=== PATIENT | female | born 1995 | race Caucasian/White ===

== ENCOUNTER 2018-04-10 06:34 | Day surgery (SDC) | payer SELFPAY ==
[~2018-04-10 06:34] MED LIST: Lactated Ringers 1,000 ML IV SCH; cefOXitin 1 GM in Premix Bag 1 BAG IV SCH
--- NOTE | 2018-04-10 06:54 | PCM.PREANE ---
Preanesthetic Assessment - Anesthesia/Transfusion/Family Hx Anesthesia History: Prior Anesthesia Without Reaction Family History of Anesthesia Reaction: No Transfusion History: No Prior Transfusion(s) - Review of Systems General: No Symptoms Pulmonary: No Symptoms Cardiovascular: No Symptoms Gastrointestinal: No Symptoms Neurological: No Symptoms Other: Reports: None - Physical Assessment NPO Status Date: 04/09/18 NPO Status Time: 23:00 Height: 5 ft 2 in Weight: 64.864 kg ASA Class: 2 Mental Status: Alert & Oriented x3 Airway Class: Mallampati = 1 Dentition: Reports: Normal Dentition Thyro-Mental Finger Breadths: 3 Mouth Opening Finger Breadths: 3 ROM/Head Extension: Full Lungs: Clear to Auscultation, Normal Respiratory Effort Cardiovascular: Regular Rate, Regular Rhythm - Allergies Allergies/Adverse Reactions: Allergies Allergy/AdvReac Type Severity Reaction Status Date / Time No Known Allergies Allergy Verified 03/30/18 14:00 - Acknowledgements Anesthesia Type Planned: General Anesthesia Pt an Appropriate Candidate for the Planned Anesthesia: Yes Alternatives and Risks of Anesthesia Discussed w Pt/Guardian: Yes Pt/Guardian Understands and Agrees with Anesthesia Plan: Yes PreAnesthesia Questionnaire HEENT History: Reports: Other (See Below) Other HEENT History: wears glasses Cardiovascular History: Reports: None Respiratory History: Reports: None Gastrointestinal History: Reports: None Genitourinary History: Reports: None FURNITURE ASSEMBLER History: Reports: None Musculoskeletal History: Reports: None Neurological History: Reports: None Psychiatric History: Reports: Anxiety, Depression Endocrine/Metabolic History: Reports: None Hematologic History: Reports: None Immunologic History: Reports: None Oncologic (Cancer) History: Reports: None Dermatologic History: Reports: None - Infectious Disease History Infectious Disease History: Reports: None - Past Surgical History Head Surgeries/Procedures: Reports: None GI Surgical History: Reports: Appendectomy - SUBSTANCE USE Smoking Status *Q: Current Every Day Smoker (1 PPD x 10 years) Tobacco Use Within Last Twelve Months: Cigarettes Second Hand Smoke Exposure: Yes Recreational Drug Use History: No - HOME MEDS Home Medications: Home Meds . [No Known Home Meds] 03/30/18 [History] - CURRENT (IN HOUSE) MEDS Current Meds: Current Medications Cefoxitin Sodium 1 gm/ Premix 50 mls @ 100 mls/hr IV ONETIME ZAID Lactated Ringer's (Ringers, Lactated) 1,000 mls @ 125 mls/hr IV ASDIRECTED ZAID
[2018-04-10] MEDS ORDERED: Lidocaine 2% 5 ML SDV ONE (07:09)
[2018-04-10] MEDS ORDERED: Propofol 200 MG/20 ML SDV ONE (07:09)
[2018-04-10] MEDS ORDERED: Midazolam 1 MG/ML 2 ML SDV ONE (07:10)
[2018-04-10] MEDS ORDERED: fentaNYL 250 MCG/5 ML SDV ONE (07:10)
[2018-04-10] MEDS ORDERED: fentaNYL 100 MCG/2 ML SDV ONE ×2 (07:10→08:19)
[2018-04-10] MEDS ORDERED: Sugammadex Sodium 200 MG/2 ML VIAL ONE (07:11)
[2018-04-10] MEDS ORDERED: Scopolamine 1.5 MG Transdermal Patch TRDERM PRN (07:12)
[2018-04-10] MEDS ORDERED: Bupivacaine 0.5% 10 ML SDV ONE (07:18)
[2018-04-10] MEDS ORDERED: HYDROmorphone 2 MG/ML SDV ONE (08:37)
[2018-04-10] MEDS ORDERED: fentaNYL 100 MCG/2 ML SDV IVPUSH PRN (08:41)
[2018-04-10] MEDS ORDERED: HYDROmorphone 2 MG/ML SDV IVPUSH ONE (08:41)
[2018-04-10] MEDS ORDERED: Acetaminophen/HYDROcodone 325-5 MG Tab PO PRN (09:24)
[2018-04-10] MEDS ORDERED: Morphine 4 MG/ML Syringe IVPUSH PRN (09:24)
--- NOTE | 2018-04-10 09:27 | PCM.OPNOTE ---
- General Post-Op/Procedure Note Date of Surgery/Procedure: 04/10/18 Operative Procedure(s): Laparoscopic cholecystectomy Pre Op Diagnosis: Cholelithiasis Post-Op Diagnosis: Cholelithiasis with cholecystitis Anesthesia Technique: General ET Tube (ASA II) Primary Surgeon: Artemio Noriega Fluid Replacement, Intraop: 1,600 EBL in mLs: 10 Condition: Good Free Text/Narrative:: DICTATION [id number] CPT CODE [id number]
[2018-04-10] MEDS ORDERED: Lactated Ringers 1,000 ML IV SCH (09:30)
--- NOTE | 2018-04-10 10:05 | PCM.POSTAN ---
POST ANESTHESIA ASSESSMENT - MENTAL STATUS Mental Status: Alert, Oriented - RESPIRATORY Respiratory Status: Respiratory Rate WNL, Airway Patent, O2 Saturation Stable - CARDIOVASCULAR CV Status: Pulse Rate WNL, Blood Pressure Stable - GASTROINTESTINAL GI Status: No Symptoms - POST OP HYDRATION Hydration Status: Adequate & Stable - OBSERVATIONS Free Text/Narrative:: required narcotic before transfer to [facility] for phase II
--- NOTE | 2018-04-10 11:28 | PCM48HPAN ---
Post Anesthesia Note - EVALUATION WITHIN 48HRS OF ANESTHETIC Vital Signs in Normal Range: Yes Patient Participated in Evaluation: Yes Respiratory Function Stable: Yes Airway Patent: Yes Cardiovascular Function Stable: Yes Hydration Status Stable: Yes Pain Control Satisfactory: Yes Nausea and Vomiting Control Satisfactory: Yes Mental Status Recovered: Yes Resp Rate: 12
[2018-04-10 14:32] VITALS: BP 121/76
--- NOTE | 2018-04-10 15:16 | OR ---
SURGEON: Artemio Noriega M.D. DATE OF PROCEDURE: 04/10/2018 OPERATION PERFORMED: Laparoscopic cholecystectomy. ANESTHESIA: General endotracheal. ASA CLASSIFICATION: II. PREOPERATIVE DIAGNOSIS: Symptomatic cholelithiasis. POSTOPERATIVE DIAGNOSIS: Symptomatic cholelithiasis. ESTIMATED BLOOD LOSS: 10 mL. INTRAOPERATIVE FLUID REPLACEMENT: 1600 mL of crystalloid. DESCRIPTION OF PROCEDURE: The patient was taken to the operating room and placed on the operating table in the supine position. Time-out was called for appropriate identification of the patient and procedure. Thigh-high TEDs and sequential compression boots were placed. Following satisfactory attainment of general endotracheal anesthesia, a Arboleda catheter was placed in the patient's urinary bladder. The abdomen was prepped with DuraPrep solution. Sterile drapes were applied. The skin below the umbilicus was infiltrated with 0.5% Marcaine solution. The skin incision was made and deepened through the subcutaneous tissue. Hemostasis was obtained with the use of electrocautery. The Veress needle was introduced into the peritoneal cavity. Saline drop test was positive. Carbon dioxide pneumoperitoneum was established with the relief set at 13 cm of water. Once a satisfactory pneumoperitoneum was established, 5 mm camera and port were placed into the infraumbilical incision. The patient was now positioned with her feet down and rolled to the left. Under camera vision, 12 mm subxiphoid, 5 mm midclavicular, and 5 mm anterior axillary ports were placed. Each incision had preemptively been infiltrated with 0.5% Marcaine solution. The gallbladder was grasped. The cholecystohepatic triangle was identified and dissected free obtaining good critical view of both the cystic duct and cystic artery. These structures were serially hemoclipped and divided with laparoscopic Metzenbaum scissor. The gallbladder was then dissected away from its bed using electrocautery. No bile was spilled and no stones were spilled. Once gallbladder was amputated, this was placed in an Endopouch. Electrocautery was used for hemostasis on the bed of the gallbladder. The right upper quadrant was irrigated with sterile saline solution. Again, no bile was seen coming from the liver bed and there was no bleeding of significant nature. There was some minor oozing from the liver bed and therefore, Avitene and Surgicel were placed into the bed of the gallbladder. The right hemidiaphragm was irrigated with 250 mL of saline containing 20 mL of 0.5% Marcaine solution. The fluid was left in situ. With gallbladder contained in the Endopouch, the 12 mm port and Endopouch containing gallbladder were removed. Again, under camera vision, the 5 mm midclavicular and anterior axillary ports were removed. Finally, the infraumbilical camera and port were removed. The wounds were inspected for hemostasis and bleeding sites were electrocoagulated. The subxiphoid and infraumbilical incisions were closed in 2 layers approximating the subcutaneous tissue with 3-0 Polysorb and the skin with subcuticular 4-0 Monocryl. The anterior axillary and midclavicular incisions were closed with subcuticular 4-0 Monocryl. All incisions were Steri-Stripped and dressed with sterile Tegaderm pads. Sponge, needle, and instrument counts were all correct. Prior to emergence from anesthesia and extubation, the Arboleda catheter was removed. The patient tolerated the procedure well and was taken to recovery room in stable condition. ELIZABETH VARGAS /[id number]
== END 2018-04-10 12:50 | disposition home or self-care (01) ==
LOC: MW.SDS 06:34
PROVIDERS: ATTEND Surgery
DX: K80.10 Calculus of gallbladder with chronic cholecystitis without obstruction (principal); F41.9 Anxiety disorder, unspecified; F32.9 Major depressive disorder, single episode, unspecified; F17.210 Nicotine dependence, cigarettes, uncomplicated; Z79.899 Other long term (current) drug therapy
CPT/HCPCS: 47562; 81025; A9270; J0694; J1170; J2250; J2270; J2704; J3010; J3490; J7120; 88304